=== PATIENT | female | born 1980 | race Caucasian/White ===

== ENCOUNTER 2017-07-07 06:34 | Observation (INO) | payer OTHER ==
[2017-07-07] MEDS ORDERED: INSULIN HUMAN REGULAR 1,000 UNITS/10 ML VIAL SQ SCH ×2 (08:00→21:00)
[2017-07-07] MEDS ORDERED: INSULIN HUMAN NPH 1,000 UNITS/10 ML VIAL SQ SCH ×2 (08:00→21:00)
[2017-07-07] MEDS: METHYLDOPA 500 MG TAB PO SCH ×3 (09:30→18:40)
[2017-07-07 13:12] LABS: BACTERIA, URINE OCC /hpf; BILIRUBIN, URINE NEG (NEG); BLOOD, URINE NEG (NEG); CALCIUM OXALATE CRYSTALS,URINE FEW /hpf; GLUCOSE,URINE NEG (NEG); KETONE, URINE NEG (NEG); NITRITE,URINE NEG (NEG); SQUAMOUS EPITHELIAL CELL URINE 9 /hpf (0-5); URINE COLOR YELLOW (YELLW/STRAW); URINE LEUKOCYTE ESTERASE LARGE (NEG)
--- NOTE | 2017-07-07 16:55 | PD.OB.ANTE ---
Subjective Interval History Pt is a 37 yo wf G1 at 34 wks 3 dys gestation with CHTN on meds with good control, GDM failing with glyburide here for insulin...good fm, no ctxs. Objective Vital Signs [id number], 2hour pp breakfast 202, 2 hour pp lunch 128 Lab & Micro Results Test 07/07/17 07:00 Urine Color YELLOW Urine Turbidity HAZY Urine pH 6.0 Urine Specific [place] 1.027 Urine Protein TRACE mg/dL Urine Glucose (UA) NEG mg/dL Urine Ketones NEG mg/dL Urine Occult Blood NEG Urine Nitrite NEG Urine Bilirubin NEG Urine Urobilinogen LESS THAN 2.0 MG/DL Urine Leukocyte Esterase LARGE Urine RBC 2 /hpf Urine WBC 15 /hpf Urine Squamous Epithelial Cells 9 /hpf Urine Calcium Oxalate Crystals FEW /hpf Urine Bacteria OCC /hpf Urine Yeast (Budding) FEW Microscopic Urinalysis Comment CULTURE INDICATED Date/Time Source Procedure Growth Status 07/07/17 07:00 Urine Clean Catch Urine Culture Pending Received Physical Exam GENERAL: Well-nourished, well-developed patient. CARDIOVASCULAR: Regular rate and rhythm without murmurs, gallops, or rubs. RESPIRATORY: Breath sounds equal bilaterally. No accessory muscle use. ABDOMEN/GI: Abdomen soft, non-tender. Fundus: [-] GENITOURINARY: External Genitalia: intact and normal in appearance Cervix: [-] Dilatation: [-] Effacement: [-] Station: [-] Presentation: [-] Membranes: [-] Uterine Contractions: [-] FHT's: Category: [-] Baseline: [-] Reactive: [-] Variability: [-] Decels: [-] EXTREMITIES: No cyanosis or edema, non-tender, without signs of DVT. Assessment and Plan Assessment and Plan GDM starting insulin, will adjust insulin dose based on sugar results Alyson James MD Jul 07, 2017 16:55
[2017-07-07 19:27] LABS: HEMOGLOBIN A1C 5.9 % (4.3-6.0)
[2017-07-08] MEDS ORDERED: INSULIN HUMAN NPH 1,000 UNITS/10 ML VIAL SQ SCH (08:00)
[2017-07-08] MEDS ORDERED: INSULIN HUMAN REGULAR 1,000 UNITS/10 ML VIAL SQ SCH (08:00)
[2017-07-08] MEDS: METHYLDOPA 500 MG TAB PO SCH ×2 (09:15→13:21)
--- NOTE | 2017-07-08 17:12 | HHI.DCPOC ---
Discharge Care Plan Diagnosis: (1) Gestational diabetes Report Symptoms to Your Doctor -Temperature above 100.5 degrees -Redness, of incision or excessive or foul smelling drainage -Unusual pain or calf pain -Increased vaginal bleeding -Painful or difficulty urinating -Feelings of extreme sadness or anxiety after 2 weeks Goals to Promote Your Health * To prevent worsening of your condition and complications * To maintain your health at the optimal level Directions to Meet Your Goals Take your medications as prescribed Follow your dietary instruction Follow activity as directed Ensure plenty of rest for recovery Drink fluids for hydration Keep your appointments as scheduled Take your immunizations and boosters as scheduled If your symptoms worsen call your PCP, if no PCP go to Urgent Care Center or Emergency Room Smoking is Dangerous to Your Health. Avoid second hand smoke Call the 24-hour crisis hotline for domestic abuse at Alyson James MD Jul 08, 2017 17:12
--- NOTE | 2017-07-08 17:13 | HHI.DS ---
Admission Date Jul 07, 2017 at 06:34 Admitting Diagnosis gestational diabetes requiring insulin at 33 wks Diagnosis: Pt Condition on Discharge: Good Discharge Disposition: Discharge Home Discharge Instructions Diet Instructions: Diabetic Diet Activities You Can Perform: Regular-No Restrictions Alyson James MD Jul 08, 2017 17:13
--- NOTE | 2017-07-14 10:37 | MH ---
cc: Alyson James MD DATE OF ADMISSION: 07/07/2017 DATE OF ADMISSION: 07/07/2017. HISTORY OF PRESENT ILLNESS: The patient is a 37-year-old female, G1, at approximately 34 weeks and 2 days gestation who presents to begin insulin due to gestational diabetes not well managed on diet nor Glyburide. Currently, the patient reports good movement. She denies contractions. There is no bleeding. She has been working hard on her gestational diet and using glyburide 5 mg b.i.d.; however, her sugars are still remaining too elevated, so she is in the hospital to begin insulin administration. PAST MEDICAL HISTORY: Pertinent for hypertension, which she is taking medicine for this . She also has PCOS. PAST SURGICAL HISTORY: Negative. MEDICATIONS: Currently are: 1. Aldomet 500 mg t.i.d. with good control. 2. She was also using glyburide 5 mg b.i.d. 3. She takes vitamins. ALLERGIES TO MEDICATIONS: None. SOCIAL HISTORY: No tobacco, alcohol or drug use. 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 FAMILY HISTORY: Noncontributory. SPORTS RECRUITER HISTORY: No abnormal Paps. No STDs. PHYSICAL EXAMINATION: VITAL SIGNS: Her blood pressure is 134/86, pulse of 70, respiratory rate 18. GENERAL: She is afebrile. BREASTS: Without masses, nodes or discharge. CHEST: Clear to auscultation bilaterally. CARDIAC: Regular rate and rhythm without murmur, rub or gallop. ABDOMEN: Gravid. She is obese. It is nontender. No CVA tenderness. No hepatosplenomegaly. No hernias. PELVIC EXAM: Deferred. EXTREMITIES: Trace edema. LABORATORY DATA: External monitoring revealed a baseline in the 140s with a reactive tracing, no contractions. Biophysical Profile: Upon admission, she scored a 10/10. Hemoglobin A1c on admission was 5.9. ASSESSMENT AND PLAN: A 37-year-old [place] female, Ricardo, at approximately 34 weeks and 2 days gestation with gestational diabetes, not controlled by diet or oral medication and hypertension controlled with medication. The plan will be to begin insulin administration, NPH and regular in the morning and in the evening, and continue her 2200 kilocalorie diet. MD JAYANT Lopez/ADELAIDA , 10:17 AM , 10:36 AM
== END 2017-07-08 17:37 | disposition home or self-care (01) ==
LOC: H2EA 06:34
PROVIDERS: ADMIT Obstetrics & Gynecology; ATTEND Obstetrics & Gynecology
DX: O24.414 Gestational diabetes mellitus in pregnancy, insulin controlled (principal); O10.913 Unspecified pre-existing hypertension complicating pregnancy, third trimester; Z3A.34 34 weeks gestation of pregnancy; R82.90 Unspecified abnormal findings in urine
CPT/HCPCS: 76816; 76819; 76820; 81001; 83036; 87086; J1815

== ENCOUNTER 2017-08-07 11:15 | Inpatient (IN) | payer OTHER ==
[~2017-08-07] VITALS: Ht 172.7 cm; Wt 131.5 kg
[2017-08-07] VITALS (12 sets, daily range): BP systolic 111–144; BP diastolic 55–84; PULSE 75–116; RESP 13–20; TEMP 97.9–98.9; O2SAT 100
[2017-08-07] MEDS ORDERED: PHENYLEPH/NS 1000 MCG/10 ML SYR IV ONE (12:00)
[2017-08-07] MEDS ORDERED: DEXAMETHASONE SOD PHOS 4 MG/ML VIAL IV ONE (12:00)
[2017-08-07] MEDS ORDERED: ONDANSETRON HCL 4 MG/2 ML VIAL IV ONE (12:00)
[2017-08-07] MEDS ORDERED: OXYTOCIN 10 UNIT/ML AMP IV ONE (12:00)
[2017-08-07] MEDS ORDERED: LACTATED RINGER'S 1000 ML INJ 1,000 ML IV ONE (12:00)
[2017-08-07] MEDS ORDERED: KETOROLAC TROMETHAMINE 30 MG/ML (IVP) VIAL IV PUSH ONE (12:00)
[2017-08-07] MEDS ORDERED: NPH INSULIN (12:45)
[2017-08-07] MEDS ORDERED: REGULAR INSULIN (12:45)
[2017-08-07] MEDS ORDERED: METH500T PO (12:45)
[2017-08-07 13:47] LABS: AUTOMATED NEUTROPHIL # 7.6 TH/MM3 (1.8-7.7); BASOPHIL % 0.2 % (0.0-2.0); EOSINOPHIL % 0.1 % (0.0-4.0); HEMATOCRIT 31.6 % (35.0-46.0); HEMOGLOBIN 10.5 GM/DL (11.6-15.3); LYMPHOCYTE # 1.6 TH/MM3 (1.0-4.8); MEAN CELL VOLUME 78.2 FL (80.0-100.0); MEAN CORPUSCULAR HEMOGLOBIN 26.1 PG (27.0-34.0); MEAN CORPUSCULAR HGB CONC 33.4 % (32.0-36.0); MEAN PLATELET VOLUME 8.8 FL (7.0-11.0); MONO % 5.8 % (0.0-8.0); MONOCYTE # 0.6 TH/MM3 (0-0.9); NEUT % 77.9 % (16.0-70.0); PLATELET COUNT 247 TH/MM3 (150-450); RED BLOOD COUNT 4.04 MIL/MM3 (4.00-5.30); RED CELL DISTRIBUTION WIDTH 16.3 % (11.6-17.2); WHITE BLOOD COUNT 9.8 TH/MM3 (4.0-11.0)
[2017-08-07 14:03] LABS: BLOOD, URINE MOD (NEG); GLUCOSE,URINE NEG (NEG); KETONE, URINE 10 mg/dL (NEG); NITRITE,URINE NEG (NEG); URINE COLOR YELLOW (YELLW/STRAW); URINE LEUKOCYTE ESTERASE LARGE (NEG)
[2017-08-07 14:05] LABS: BACTERIA, URINE RARE /hpf; MUCUS URINE FEW /lpf (OCC); SQUAMOUS EPITHELIAL CELL URINE 40 /hpf (0-5)
[2017-08-07 14:09] LABS: BILIRUBIN, URINE NEG (NEG)
[2017-08-07 14:13] LABS: ALBUMIN 2.6 GM/DL (3.4-5.0); DIRECT BILIRUBIN ADULT 0.1 MG/DL (0.0-0.2)
[2017-08-07 14:14] LABS: INDIRECT BILIRUBIN 0.2 MG/DL (0.0-0.8); TOTAL BILIRUBIN ADULT 0.3 MG/DL (0.2-1.0); TOTAL PROTEIN 7.1 GM/DL (6.4-8.2)
[2017-08-07] MEDS ORDERED: METHYLDOPA 500 MG TAB PO ONE (14:30)
[2017-08-07] MEDS ORDERED: LACTATED RINGER'S 1000 ML IV SCH (14:30)
[2017-08-07] MEDS ORDERED: ceFAZolin 2 GM PREMIX 50 ML IV SCH (14:30)
[2017-08-07] MEDS ORDERED: LACTATED RINGER'S 1000 ML IV ONE (14:30)
[2017-08-07] MEDS ORDERED: CITRIC ACID-SODIUM CITRATE LIQ 30 ML UDC PO SCH (14:30)
[2017-08-07] MEDS ORDERED: MORPHINE SULFATE PF 5 MG/10 ML VIAL ONE (16:50)
[2017-08-07] MEDS ORDERED: ACETAMINOPHEN 1000 MG/100 ML 100 ML IV ONE (16:50)
[2017-08-07] MEDS ORDERED: OXYTOCIN 30 UNITS-500ML PREMIX 500 ML IV ONE (18:00)
[2017-08-07] MEDS ORDERED: SODIUM CHLORIDE 0.9% FLUSH 10 ML FLUSH IV FLUSH PRN (18:00)
[2017-08-07] MEDS ORDERED: oxyCODONE/ACETAMINOPHEN 5 MG/325 MG TAB PO PRN (18:00)
[2017-08-07] MEDS ORDERED: SIMETHICONE 80 MG CHEWABLE TAB PO PRN (18:00)
[2017-08-07] MEDS ORDERED: ONDANSETRON ODT 4 MG TAB PO PRN (18:00)
[2017-08-07] MEDS ORDERED: KETOROLAC TROMETHAMINE 60 MG/2 ML (IM) VIAL IM PRN (18:00)
[2017-08-07] MEDS ORDERED: OXYTOCIN 30 UNITS-500ML PREMIX 500 ML ONE (19:23)
[2017-08-07] MEDS ORDERED: EPIDURAL-NALOXONE HCL 0.4 MG/ML AMP IV PUSH PRN (20:30)
[2017-08-07] MEDS ORDERED: EPIDURAL-DIPHENHYDRAMINE HCL 50 MG/ML VIAL IV PUSH PRN (20:30)
[2017-08-07] MEDS ORDERED: EPIDURAL-DO NOT ADMINISTER ANTICOAGULANTS PRN (20:30)
[2017-08-07] MEDS ORDERED: EPIDURAL-DIPHENHYDRAMINE HCL 50 MG CAP PO PRN (20:30)
[2017-08-07] MEDS ORDERED: EPIDURAL-NO SYSTEMIC NARCOTICS PRN (20:30)
[2017-08-07] MEDS ORDERED: SODIUM CHLORIDE 0.9% FLUSH 10 ML FLUSH IV FLUSH SCH (21:00)
[2017-08-07] MEDS: METHYLDOPA 500 MG TAB PO SCH (21:59)
[2017-08-07] MEDS ORDERED: OXYTOCIN 30 UNITS-500ML PREMIX 500 ML IV PRN (23:00)
[2017-08-08] MEDS: LACTATED RINGER'S 1000 ML INJ 1,000 ML IV SCH ×2 (01:03→06:17)
[2017-08-08 02:00] VITALS: RESP 16
[2017-08-08 04:02] VITALS: BP 118/70; PULSE 73; RESP 18; TEMP 97.9
[2017-08-08] MEDS: oxyCODONE/ACETAMINOPHEN 5 MG/325 MG TAB PO PRN ×3 (05:37→20:37)
[2017-08-08] MEDS: IBUPROFEN 600 MG TAB PO PRN ×3 (05:37→20:36)
[2017-08-08] MEDS: METHYLDOPA 500 MG TAB PO SCH ×3 (05:37→22:37)
[2017-08-08 05:57] LABS: AUTOMATED NEUTROPHIL # 9.2 TH/MM3 (1.8-7.7); BASOPHIL % 0.4 % (0.0-2.0); HEMATOCRIT 27.1 % (35.0-46.0); LYMPH % 12.8 % (9.0-44.0); LYMPHOCYTE # 1.4 TH/MM3 (1.0-4.8); MEAN CELL VOLUME 79.1 FL (80.0-100.0); MEAN CORPUSCULAR HEMOGLOBIN 26.2 PG (27.0-34.0); MEAN CORPUSCULAR HGB CONC 33.2 % (32.0-36.0); MEAN PLATELET VOLUME 8.9 FL (7.0-11.0); MONO % 5.8 % (0.0-8.0); MONOCYTE # 0.7 TH/MM3 (0-0.9); PLATELET COUNT 194 TH/MM3 (150-450); RED BLOOD COUNT 3.42 MIL/MM3 (4.00-5.30); RED CELL DISTRIBUTION WIDTH 16.2 % (11.6-17.2); WHITE BLOOD COUNT 11.3 TH/MM3 (4.0-11.0)
--- NOTE | 2017-08-08 08:13 | MP ---
cc: Alyson James MD DATE OF OPERATION: 08/07/2017 PREOPERATIVE DIAGNOSIS: Intrauterine at 38 weeks and 5 days gestation with suspected macrosomia with gestational diabetes requiring insulin with chronic hypertension. POSTOPERATIVE DIAGNOSES: Intrauterine at 38 weeks and 5 days gestation with suspected macrosomia with gestational diabetes requiring insulin with chronic hypertension. PROCEDURE PERFORMED: Primary low transverse section. SURGEON: Alyson Bangura MD. ANESTHESIA: Spinal. FINDINGS IN SURGERY: Included a viable male infant weighing 10 pounds 0 ounces with Apgars 8 and 9. Normal appearing tubes and ovaries bilaterally. COMPLICATIONS: None. ESTIMATED BLOOD LOSS: 800 mL. PROCEDURE IN DETAIL: After proper consents were obtained, blood had been typed and screened, patient was taken to the operating room where spinal anesthetic was placed. She was then placed in the dorsal position, sterilely prepped and draped and a Velasquez catheter was placed. At this time using a sharp knife, a Pfannenstiel skin incision was made. This was carried down to the fascia using the Bovie cautery. The fascia was nicked in the midline and extended superolaterally on each side. We then had blunt dissection of the fascia off of the muscles. Peritoneum was identified, grasped with 2 hemostats, entered sharply with the Metzenbaum scissors. This was extended superiorly and inferiorly paying close attention to the bladder. The bladder blade was placed. Bladder flap was developed. Bladder blade was replaced. We made a transverse incision in the lower uterine segment, extended that using the finger fracture technique. Rupture of membranes revealed clear fluid. We had a controlled delivery of the vertex. Bulb suction to the oropharynx and the nares and then a controlled delivery of the body. We had delayed cord clamping for 45 seconds. We then clamped the cord, cut in between and handed the to the team in attendance. A viable male, 10 pounds 0 ounces with Apgars 8 and 9. At this time, cord blood sample was obtained. Placenta was removed. Uterus was exteriorized and wiped clean of clots and debris. The uterine incision was closed with a #1 chromic suture starting at each apex and meeting in the midline in a running interlocking fashion. Excellent hemostasis was noted. Irrigation was performed of the abdominal pelvic cavity. We placed the uterus back into the cavity. Hemostasis was assured, we reapproximated the muscles using a #1 chromic suture x 1. We then closed the fascia using 0 Vicryl starting at each apex and meeting in the midline in a running fashion. Irrigation was performed of the subcutaneous. Hemostasis achieved with Bovie cautery. We closed the skin with a 4-0 Monocryl in a subcuticular fashion. Counts were correct and the patient was stable to the recovery room. MD JAYANT Lopez/DL , 07:53 AM , 08:12 AM
[2017-08-08 08:40] VITALS: BP 117/69; PULSE 80; RESP 16; TEMP 97.5
[2017-08-08 12:00] VITALS: BP 108/77; PULSE 81; RESP 18; TEMP 98; O2SAT 96
--- NOTE | 2017-08-08 12:24 | HHI.OB ---
Subjective Post Operative Day: 1 Remarks Pt doing well, no n/v, good pain control, tolerating po Objective Vitals/I&O Vital Signs Date Time Temp Pulse Resp B/P (MAP) Pulse Ox O2 Delivery O2 Flow Rate FiO2 08/08/17 12:00 98.0 81 18 108/77 (87) 96 08/08/17 08:40 97.5 80 16 117/69 (85) 08/08/17 04:02 97.9 73 18 118/70 (86) 08/08/17 02:00 16 08/07/17 23:57 98.9 76 18 118/75 (89) 08/07/17 21:11 98.2 76 18 126/76 (93) 08/07/17 19:31 18 100 08/07/17 19:21 75 08/07/17 19:21 121/55 (77) 08/07/17 19:19 97.9 08/07/17 19:19 18 100 08/07/17 18:45 76 18 100 08/07/17 18:33 13 08/07/17 18:33 76 111/55 (73) 100 08/07/17 18:07 98.0 18 100 08/07/17 18:07 80 113/62 (79) 08/07/17 15:54 89 144/84 (104) 08/07/17 14:37 98.2 Result Diagram: 08/08/17 0446 Objective Remarks GENERAL: Well-nourished, well-developed patient. CARDIOVASCULAR: Regular rate and rhythm without murmurs, gallops, or rubs. RESPIRATORY: Breath sounds equal bilaterally. No accessory muscle use. ABDOMEN/GI: Abdomen soft, non-tender, bowel sounds present. Incision: Clean, dry and intact. Fundus: Firm, non-tender at umbilicus. GENITOURINARY: Light to moderate bleeding. EXTREMITIES: No cyanosis or edema, non-tender, without signs of DVT. Medications and IVs Current Medications Medications (Trade) Dose Ordered Sig/Fritz Route Start Time Stop Time Status Last Admin Lactated Ringer's 1,000 ml @ 150 mls/hr Q6H40M IV 08/07/17 14:30 (Bicitra Liq) 30 ml SUPERVISOR SAWMILL PO 08/07/17 14:30 08/10/17 14:29 08/07/17 14:28 Cefazolin Sodium/ Dextrose 50 ml @ 100 mls/hr SUPERVISOR SAWMILL IV 08/07/17 14:30 08/10/17 14:29 08/07/17 14:57 Lactated Ringer's 1,000 ml @ 100 mls/hr Q10H IV 08/07/17 22:47 08/08/17 18:46 08/08/17 06:17 Oxytocin 500 ml @ 100 mls/hr UNSCH X1 PRN IV 08/07/17 23:00 08/08/17 22:59 (NS Flush) 2 ml BID IV FLUSH 08/07/17 21:00 (NS Flush) 2 ml UNSCH PRN IV FLUSH 08/07/17 18:00 (Mylicon Chew) 80 mg QID PRN PO 08/07/17 18:00 (Motrin) 600 mg Q6H PRN PO 08/07/17 18:00 08/08/17 05:37 (Toradol Inj) 30 mg Q6H PRN IM 08/07/17 18:00 08/08/17 17:59 (Percocet 5-325 Mg) 1 tab Q4H PRN PO 08/07/17 18:00 (Percocet 5-325 Mg) 2 tab Q4H PRN PO 08/07/17 18:00 08/08/17 05:37 (M-M-R Ii Inj) 0.5 ml ONCE ONCE SQ 08/08/17 16:00 08/08/17 16:01 (Boostrix Inj) 0.5 ml ONCE ONCE IM 08/08/17 16:00 08/08/17 16:01 (Zofran Odt) 4 mg Q6H PRN PO 08/07/17 18:00 (Aldomet) 500 mg Q8HR PO 08/07/17 22:00 08/08/17 05:37 ([facility] [place] Nursing Information) NO SYSTEMIC NARCOTICS TO BE GIVEN FO... UNSCH PRN .XX 08/07/17 20:30 08/08/17 17:05 (Narcan Inj) 0.4 mg UNSCH PRN IV PUSH 08/07/17 20:30 08/08/17 17:05 (Benadryl Inj) 25 mg Q6H PRN IV PUSH 08/07/17 20:30 08/08/17 17:05 (Benadryl) 50 mg Q6H PRN PO 08/07/17 20:30 08/08/17 17:05 ([facility] [place] Nursing Information) ALL NURSING DEPARTMENTS UNSCH PRN .XX 08/07/17 20:30 08/08/17 17:05 Assessment/Plan Assessment and Plan POD # 1 s/p c/s doing well, routine care Alyson James MD August 08, 2017 12:24
[2017-08-08 16:00] VITALS: BP 105/72; PULSE 78; RESP 18; TEMP 98.3; O2SAT 96
[2017-08-08] MEDS ORDERED: MEASLES, MUMPS, RUBELLA VACCINE 0.5 ML VIAL SQ ONE (16:00)
[2017-08-08] MEDS ORDERED: DIPHTH/TETANUS/ACEL PERTUSSIS (BOOSTER) 0.5 ML VIAL/PFS IM ONE (16:00)
[2017-08-08 20:25] VITALS: BP 119/78; PULSE 94; RESP 19; TEMP 97.6
[2017-08-09] MEDS: IBUPROFEN 600 MG TAB PO PRN ×4 (03:00→23:37)
[2017-08-09] MEDS: oxyCODONE/ACETAMINOPHEN 5 MG/325 MG TAB PO PRN ×5 (03:00→23:37)
--- NOTE | 2017-08-09 05:15 | HHI.OB ---
Subjective Post Operative Day: 2 Remarks Pt doing well, tolerating po, good pain control Objective Vitals/I&O Vital Signs Date Time Temp Pulse Resp B/P (MAP) Pulse Ox O2 Delivery O2 Flow Rate FiO2 08/08/17 20:25 97.6 94 19 119/78 (92) 08/08/17 16:00 98.3 18 96 08/08/17 16:00 78 105/72 (83) 08/08/17 12:00 98.0 81 18 108/77 (87) 96 08/08/17 08:40 97.5 80 16 117/69 (85) Result Diagram: 08/08/17 0446 Objective Remarks GENERAL: Well-nourished, well-developed patient. CARDIOVASCULAR: Regular rate and rhythm without murmurs, gallops, or rubs. RESPIRATORY: Breath sounds equal bilaterally. No accessory muscle use. ABDOMEN/GI: Abdomen soft, non-tender, bowel sounds present. Incision: Clean, dry and intact. Fundus: Firm, non-tender at umbilicus. GENITOURINARY: Light to moderate bleeding. EXTREMITIES: No cyanosis or edema, non-tender, without signs of DVT. Medications and IVs Current Medications Medications (Trade) Dose Ordered Sig/Fritz Route Start Time Stop Time Status Last Admin Lactated Ringer's 1,000 ml @ 150 mls/hr Q6H40M IV 08/07/17 14:30 (Bicitra Liq) 30 ml MEDICAL SUPPORT SPECIALIST PO 08/07/17 14:30 08/10/17 14:29 08/07/17 14:28 Cefazolin Sodium/ Dextrose 50 ml @ 100 mls/hr MEDICAL SUPPORT SPECIALIST IV 08/07/17 14:30 08/10/17 14:29 08/07/17 14:57 (NS Flush) 2 ml BID IV FLUSH 08/07/17 21:00 (NS Flush) 2 ml UNSCH PRN IV FLUSH 08/07/17 18:00 (Mylicon Chew) 80 mg QID PRN PO 08/07/17 18:00 (Motrin) 600 mg Q6H PRN PO 08/07/17 18:00 08/09/17 03:00 (Percocet 5-325 Mg) 1 tab Q4H PRN PO 08/07/17 18:00 (Percocet 5-325 Mg) 2 tab Q4H PRN PO 08/07/17 18:00 08/09/17 03:00 (Zofran Odt) 4 mg Q6H PRN PO 08/07/17 18:00 (Aldomet) 500 mg Q8HR PO 08/07/17 22:00 08/08/17 22:37 Assessment/Plan Assessment and Plan POD # 2 s/p c/s doing well, routine care Alyson James MD August 09, 2017 05:15
[2017-08-09 08:00] VITALS: BP 120/66; PULSE 20; PULSE 70; RESP 20; TEMP 97.9; O2SAT 97
[2017-08-09] MEDS: METHYLDOPA 500 MG TAB PO SCH ×2 (14:18→23:36)
[2017-08-09 20:00] VITALS: BP 131/70; PULSE 90; RESP 18; TEMP 98.1; O2SAT 96
[2017-08-09 23:37] VITALS: BP 135/89; PULSE 91; RESP 18
[2017-08-10] MEDS: METHYLDOPA 500 MG TAB PO SCH ×2 (06:17→15:16)
[2017-08-10] MEDS ORDERED: OXYC1TAB63 PO (10:39)
--- NOTE | 2017-08-10 10:40 | HHI.DCPOC ---
Discharge Care Plan Your Health Problems Are: delivery Report Symptoms to Your Doctor -Temperature above 100.5 degrees -Redness, of incision or excessive or foul smelling drainage -Unusual pain or calf pain -Increased vaginal bleeding -Painful or difficulty urinating -Feelings of extreme sadness or anxiety after 2 weeks Goals to Promote Your Health * To prevent worsening of your condition and complications * To maintain your health at the optimal level Directions to Meet Your Goals Take your medications as prescribed Follow your dietary instruction Follow activity as directed Ensure plenty of rest for recovery Drink fluids for hydration Keep your appointments as scheduled Take your immunizations and boosters as scheduled If your symptoms worsen call your PCP, if no PCP go to Urgent Care Center or Emergency Room Smoking is Dangerous to Your Health. Avoid second hand smoke Call the 24-hour crisis hotline for domestic abuse at Alyson James MD August 10, 2017 10:40
--- NOTE | 2017-08-10 10:41 | HHI.DS ---
Admission Date August 07, 2017 at 11:15 Admitting Diagnosis Diagnosis: : Primary : Male Pt Condition on Discharge: Good Discharge Disposition: Discharge Home Discharge Instructions Diet Instructions: As Tolerated, No Restrictions Activities You Can Perform: Pelvic Rest Alyson James MD August 10, 2017 10:41
[2017-08-10] MEDS: oxyCODONE/ACETAMINOPHEN 5 MG/325 MG TAB PO PRN (15:16)
[2017-08-10] MEDS: IBUPROFEN 600 MG TAB PO PRN (15:16)
== END 2017-08-10 15:47 | disposition home or self-care (01) | DRG 765 ==
LOC: H2EB 11:15 → H1EA 19:57
PROVIDERS: ADMIT Obstetrics & Gynecology; ATTEND Obstetrics & Gynecology
PROC: 10D00Z1 Extraction of Products of Conception, Low, Open Approach (ICD-10-PCS; principal; 2017-08-07)
PROC: 3E0R3BZ Introduction of Anesthetic Agent into Spinal Canal, Percutaneous Approach (ICD-10-PCS; 2017-08-07)
DX: O36.63X0 Maternal care for excessive fetal growth, third trimester, not applicable or unspecified (principal); O10.92 Unspecified pre-existing hypertension complicating childbirth; O24.424 Gestational diabetes mellitus in childbirth, insulin controlled; Z37.0 Single live birth; Z3A.38 38 weeks gestation of pregnancy
CPT/HCPCS: 59025; 80076; 80307; 81001; 82948; 84550; 85025; 86850; 86900; 86901; 87086; 90715; J0131; J0690; J1100; J1885; J2274; J2370; J2405; J2590; J7120